=== PATIENT | female | born 1940 | race Asian ===

== ENCOUNTER 2018-08-29 17:50 | Emergency (ER) | payer OTHER ==
[~2018-08-29] VITALS: Ht 162.6 cm; Wt 79.4 kg
[2018-08-29 18:59] LABS: PLATELET COUNT 282 K/uL (152-353)
[2018-08-29 19:03] LABS: POTASSIUM 4.1 mmol/L (3.6-5.2)
[2018-08-29 19:50] VITALS: BP 139/70; TEMP 98.1
[2018-08-30] MEDS ORDERED: DIPHENHYDRAMINE HCL IM (01:51)
[2018-08-30] MEDS ORDERED: HALO50IN4 IM (01:57)
[2018-08-30] MEDS ORDERED: OXCARBAZEPIN150 MG PO (02:01)
[2018-08-30] MEDS ORDERED: SEROQUEL25 MG PO ×2 (02:04→02:08)
[2018-08-30] MEDS ORDERED: TEMA15CA19 PO (02:09)
[2018-08-30] MEDS ORDERED: INFLUENZA VACCINE IM (02:39)
== END 2018-08-29 20:06 | disposition other institution (70) ==
LOC: ED 17:59
PROVIDERS: Emergency Medicine
DX: Z04.6 Encounter for general psychiatric examination, requested by authority (principal); D64.89 Other specified anemias
CPT/HCPCS: 36415; 80053; 85027; 93005; 99285